=== PATIENT | female | born 1995 | race Caucasian/White ===

== ENCOUNTER 2020-06-14 20:44 | Emergency (ER) | payer MEDICAID, SELFPAY ==
[~2020-06-14] VITALS: Ht 170.2 cm; Wt 107.8 kg
[2020-06-14 20:50] VITALS: BP 159/107
--- NOTE | 2020-06-14 21:00 | NUR ---
[facility]P AT BEDSIDE FOR ASSESSMENT
== END 2020-06-14 22:51 | disposition home or self-care (01) ==
LOC: ED 21:24
DX: F41.1 Generalized anxiety disorder (principal); R06.00 Dyspnea, unspecified; R20.2 Paresthesia of skin; R07.89 Other chest pain; R06.02 Shortness of breath
CPT/HCPCS: 71046; 93005; 99283